=== PATIENT | male | born 1960 | race Caucasian/White ===

== ENCOUNTER 2025-07-02 20:11 | Inpatient (IN) | payer MEDICARE, OTHER ==
[~2025-07-02] VITALS: Ht 182.9 cm; Wt 59.0 kg
[2025-07-02 00:35] VITALS: BP 160/97; TEMP 98.2; O2SAT 96
[2025-07-02] MEDS ORDERED: VANCOMYCIN 1 GM /D5W 250 ML PB IV ONE (20:37)
[2025-07-02] MEDS ORDERED: LEVOFLOXACIN 750 MG /D5W 150ML 150 ML IV ONE (20:38)
[2025-07-02] MEDS ORDERED: ACETAMINOPHEN 650 MG/SUPP.RECT RC ONE (20:38)
[2025-07-02] MEDS: IV NS 0.9% 1,000 ML BAG IV ONE ×2 (20:47→21:35)
[2025-07-02] MEDS: VANCOMYCIN HCL 1 GM in IV D5W 260 ML IV ONE (20:47)
[2025-07-02] MEDS: ACETAMINOPHEN 650 MG/SUPP.RECT RC ONE (21:01)
[2025-07-02 21:02] LABS: PLATELET COUNT (AUTO) 255 K/uL (150-450); RED BLOOD CELL COUNT(AUTO) 3.33 MIL/uL (4.5-6.0); RED CELL DISTRIBUTION WIDTH 14.3 % (11.5-15.0); WHITE BLOOD COUNT (AUTO) 8.6 K/uL (4.3-11.0)
[2025-07-02 21:11] LABS: CALCIUM, SERUM 8.1 mg/dL (8.5-10.1); CREATININE 0.6 mg/dL (0.6-1.3); SODIUM SERUM 135 mmol/L (136-145); UREA NITROGEN, BLOOD 18 mg/dL (7-18)
[2025-07-02 21:20] LABS: ABG BASE EXCESS 2.9 mmol/L (-2.0-3.0); ABG OXYGEN SATURATION 96.6 % (94.0-98.0); ABG PCO2 37.7 mmHg (35.0-48.0); ABG PH 7.467 (7.350-7.450); ABG PO2 91.7 mmHg (83.0-108.0); ABG TOTAL HEMOGLOBIN 10.8 G/dL (13.5-17.5); FLOW, BLOOD GAS 2.00 L/min (0.00-30.00); FRACTIONATED INSPIRED OXYGEN 28.0 %; SITE, ABG RIGHT RADIAL
[2025-07-02 21:20] LABS: LACTIC ACID 2.1 mmol/L (0.4-2.0)
[2025-07-02 21:25] LABS: ASPARTATE AMINOTRANSFERASE 14 U/L (15-37); INR 1.12 (0.91-1.10); TOTAL PROTEIN, SERUM 7.4 g/dL (6.4-8.2)
[2025-07-02] MEDS ORDERED: IPRATROPIUM NEB FS 0.5 MG/2.5 ML AMPUL.NEB ONE (21:36)
[2025-07-02] MEDS ORDERED: ALBUTEROL FS 2.5 MG/3 ML VIAL.NEB ONE (21:36)
[2025-07-02 21:37] VITALS: O2SAT 95
[2025-07-02] MEDS ORDERED: MORPHINE SULFATE INJ 4 MG/ML DISP.SYRIN ONE (21:38)
[2025-07-02] MEDS: ALBUTEROL FS 2.5 MG/3 ML VIAL.NEB NEB ONE (21:40)
[2025-07-02] MEDS: IPRATROPIUM NEB FS 0.5 MG/2.5 ML AMPUL.NEB NEB ONE (21:40)
[2025-07-02 21:41] VITALS: O2SAT 95
[2025-07-02 21:41] LABS: APPEARANCE,URINE CLOUDY (CLEAR); BLOOD, URINE 3+ Ery/uL (NEGATIVE); LEUKOCYTE ESTERASE ,URINE 3+ (NEGATIVE); NITRITE, URINE POSITIVE (NEGATIVE); UGLUCOSE NEGATIVE (NEGATIVE)
[2025-07-02] MEDS: MORPHINE SULFATE INJ 2 MG/ML DISP.SYRIN IV ONE (21:41)
[2025-07-02] MEDS: LEVOFLOXACIN 750 MG /D5W 150ML PIGGYBACK IV ONE (21:50)
[2025-07-02 21:51] LABS: ADD URINE CULTURE YES; SQUAMOUS EPITHELIAL CELL,UR Few /HPF (None Seen); TRIPLE PHOSPHATE CRYSTAL,UR Many /HPF (None Seen)
[2025-07-03] MEDS ORDERED: ONDANSETRON HCL/PF 4 MG/2 ML VIAL IVP PRN
[2025-07-03] MEDS ORDERED: ALBUTEROL FS 2.5 MG/3 ML VIAL.NEB NEB PRN
[2025-07-03] MEDS ORDERED: IPRATROPIUM NEB FS 0.5 MG/2.5 ML AMPUL.NEB NEB PRN
[2025-07-03] MEDS ORDERED: Z GUARD REMEDY 4 OZ OINT TP PRN
[2025-07-03] MEDS ORDERED: DOSING PER PHARMACY-VANCOMYCIN IV XX PRN
[2025-07-03] MEDS: IV NS 0.9% 1,000 ML IV ONE (00:30)
[2025-07-03 00:35] VITALS: BP 148/82; TEMP 98.2; O2SAT 96
[2025-07-03 04:00] VITALS: BP 114/65; TEMP 98.2; O2SAT 95
[2025-07-03 06:29] LABS: PLATELET COUNT (AUTO) 234 K/uL (150-450); RED BLOOD CELL COUNT(AUTO) 3.39 MIL/uL (4.5-6.0); RED CELL DISTRIBUTION WIDTH 14.3 % (11.5-15.0); WHITE BLOOD COUNT (AUTO) 6.6 K/uL (4.3-11.0)
[2025-07-03 06:41] LABS: CALCIUM, SERUM 8.9 mg/dL (8.5-10.1); CREATININE 0.8 mg/dL (0.6-1.3); PHOSPHORUS 3.7 mg/dL (2.5-4.9); SODIUM SERUM 141.0 mmol/L (136-145); UREA NITROGEN, BLOOD 15.0 mg/dL (7-18)
[2025-07-03 08:00] VITALS: BP 137/83; TEMP 98.7; O2SAT 96
[2025-07-03] MEDS: PANTOPRAZOLE 40 MG/PACK PACK GT SCH (09:04)
[2025-07-03] MEDS: VANCOMYCIN 1 GM in IV D5W 250ml IV SCH (09:04)
[2025-07-03] MEDS: ENOXAPARIN SODIUM 40 MG/0.4 ML DISP.SYRIN SQ SCH (09:12)
[2025-07-03] MEDS ORDERED: PANT40SU2 GT (12:59)
[2025-07-03] MEDS ORDERED: MAGN400O6 GT (12:59)
[2025-07-03] MEDS ORDERED: ASPI-1169 GT (12:59)
[2025-07-03] MEDS ORDERED: BISA10SU11 RC (12:59)
[2025-07-03] MEDS ORDERED: IPRA3AMP23 IH (12:59)
[2025-07-03] MEDS ORDERED: ACET-73 GT (12:59)
[2025-07-03] MEDS ORDERED: ACET-637 GT (12:59)
[2025-07-03] MEDS ORDERED: ACET325T53 GT (12:59)
[2025-07-03] MEDS ORDERED: MIDO10TA GT (12:59)
[2025-07-03] MEDS ORDERED: SENN-261 GT (12:59)
[2025-07-03] MEDS ORDERED: MULT-213 GT (12:59)
[2025-07-03] MEDS ORDERED: PALI156D IM (12:59)
[2025-07-03] MEDS ORDERED: ONDA-97 GT (12:59)
[2025-07-03] MEDS ORDERED: DOCU100C36 GT (12:59)
[2025-07-03] MEDS ORDERED: POLY17PO4 GT (12:59)
[2025-07-03] MEDS ORDERED: POLY15DR31 EACHEYE (12:59)
[2025-07-03] MEDS ORDERED: DIVA125C2 GT (12:59)
[2025-07-03] MEDS ORDERED: NA P133E RC (12:59)
[2025-07-03] MEDS ORDERED: DIAZ2TAB3 GT (12:59)
[2025-07-03] MEDS ORDERED: FOLI0.4T6 GT (12:59)
[2025-07-03] MEDS ORDERED: FERR325T24 GT (12:59)
[2025-07-03] MEDS ORDERED: SCOP1PAT11 TD (12:59)
[2025-07-03] MEDS ORDERED: LACT-209 GT (12:59)
[2025-07-03] MEDS ORDERED: AMIN30LI27 GT (12:59)
[2025-07-03] MEDS ORDERED: HONE44PA TP (12:59)
[2025-07-03] MEDS ORDERED: MELA3TAB41 GT (12:59)
[2025-07-03] MEDS ORDERED: ASCO-352 GT (12:59)
[2025-07-03] MEDS ORDERED: QUET100T GT (12:59)
[2025-07-03] MEDS ORDERED: NALO4SPR NS (12:59)
[2025-07-03] MEDS ORDERED: NEOM1OIN15 TP (12:59)
[2025-07-03 16:00] VITALS: BP 124/79; TEMP 97.9; O2SAT 92
[2025-07-03] MEDS: JEVITY 1.2 CAL 1,000 ML BOTTLE GT PRN (19:20)
[2025-07-03 20:00] VITALS: BP 132/77; TEMP 98.6; O2SAT 95
[2025-07-03] MEDS: LEVOFLOXACIN 750 MG /D5W 150ML 750 MG in PREMIX 1 EA IV SCH (20:29)
[2025-07-04] VITALS (9 sets, daily range): BP systolic 113–133; BP diastolic 75–88; TEMP 97.5–98.8; O2SAT 93–98
[2025-07-04 06:20] LABS: PLATELET COUNT (AUTO) 260 K/uL (150-450); RED BLOOD CELL COUNT(AUTO) 3.34 MIL/uL (4.5-6.0); RED CELL DISTRIBUTION WIDTH 14.8 % (11.5-15.0); WHITE BLOOD COUNT (AUTO) 6.5 K/uL (4.3-11.0)
[2025-07-04 06:31] LABS: CALCIUM, SERUM 8.7 mg/dL (8.5-10.1); CREATININE 0.7 mg/dL (0.6-1.3); PHOSPHORUS 2.8 mg/dL (2.5-4.9); SODIUM SERUM 142.0 mmol/L (136-145); UREA NITROGEN, BLOOD 13.0 mg/dL (7-18)
[2025-07-04] MEDS: VANCOMYCIN HCL 1.25 GM in IV D5W 250 ML IV SCH (08:32)
[2025-07-04] MEDS: DAKINS QUARTER STRENGTH (0.125%) 480 ML BOTTLE TOP SCH (11:24)
[2025-07-04] MEDS: NEOMY SULF/BACITRAC ZN/POLY 15 GM TUBE TP SCH (11:24)
[2025-07-04 12:15] LABS: EOSINOPHILS % (MANUAL) 1 % (0-4); LYMPHOCYTES % (MANUAL) 16 % (16-48); MONOCYTES % (MANUAL) 15 % (0-11.0); NEUTROPHILS % (MANUAL) 68 (42-76); PLATELET ESTIMATE ADEQUATE
[2025-07-04] MEDS: IV NS 0.9% 1,000 ML IV ONE (12:30)
[2025-07-04] MEDS: ARGININE/GLUTAMINE/CALCIUM BMB 1 EACH POWD.PACK PEG SCH (12:30)
[2025-07-04] MEDS ORDERED: BISACODYL SUPP (10 MG) 10 MG/SUPP.RECT SUPP.RECT RC PRN (13:00)
[2025-07-04] MEDS ORDERED: DOCUSATE SODIUM 100 MG CAPSULE PO PRN (13:00)
[2025-07-04] MEDS ORDERED: DIAZEPAM 2 MG TABLET GT PRN (13:00)
[2025-07-04] MEDS ORDERED: THERAHONEY GEL 1.5 OZ TUBE TP PRN (13:00)
[2025-07-04] MEDS ORDERED: ALBUTEROL FS 2.5 MG/0.5 ML VIAL.NEB NEB PRN (13:00)
[2025-07-04] MEDS ORDERED: IPRATROPIUM NEB FS 0.5 MG/2.5 ML AMPUL.NEB NEB PRN (13:30)
[2025-07-04] MEDS: ALBUTEROL FS 2.5 MG/0.5 ML VIAL.NEB NEB SCH (13:43)
[2025-07-04] MEDS: DIVALPROEX SODIUM 125 MG CAP.SPRINK GT SCH (13:50)
[2025-07-04] MEDS: PROSOURCE / PROSTAT (PYXIS) 30 ML UDC GT SCH (13:50)
[2025-07-04] MEDS: VITAL AF 1.2 1,000 ML BOTTLE GT PRN (14:19)
[2025-07-04] MEDS: THERAHONEY GEL 1.5 OZ TUBE TP SCH (14:41)
[2025-07-04] MEDS: POLYVINYL ALCOHOL 15 ML BOTTLE EACHEYE SCH (17:52)
[2025-07-04] MEDS: TAMSULOSIN 0.4 MG CAP.SR.24H PO ONE (19:30)
[2025-07-04] MEDS: IPRATROPIUM NEB FS 0.5 MG/2.5 ML AMPUL.NEB NEB SCH (19:36)
[2025-07-04] MEDS: MUPIROCIN OINT 2% 22 GM TUBE NS SCH (20:50)
[2025-07-04] MEDS: QUETIAPINE FUMARATE 100 MG TABLET GT SCH (20:50)
[2025-07-05] VITALS (38 sets, daily range): BP systolic 80–132; BP diastolic 55–116; TEMP 97.2–98.8; O2SAT 97–100
[2025-07-05] MEDS ORDERED: ALBUMIN 25% 100 ML IV ONE (01:15)
[2025-07-05] MEDS: ALBUMIN 25% 12.5 GM/50 ML BOTTLE IV ONE (01:19)
[2025-07-05 08:19] LABS: PLATELET COUNT (AUTO) 226 K/uL (150-450); RED BLOOD CELL COUNT(AUTO) 3.26 MIL/uL (4.5-6.0); RED CELL DISTRIBUTION WIDTH 14.7 % (11.5-15.0); WHITE BLOOD COUNT (AUTO) 6.8 K/uL (4.3-11.0)
[2025-07-05 08:31] LABS: CALCIUM, SERUM 9.0 mg/dL (8.5-10.1); CREATININE 0.7 mg/dL (0.6-1.3); PHOSPHORUS 3.4 mg/dL (2.5-4.9); SODIUM SERUM 145.0 mmol/L (136-145); UREA NITROGEN, BLOOD 11.0 mg/dL (7-18)
[2025-07-05] MEDS: SENNOSIDES 8.6 MG TABLET GT SCH (08:50)
[2025-07-05] MEDS: MULTIVIT W/MINERALS 1 TAB TABLET GT SCH (08:50)
[2025-07-05] MEDS: ASCORBIC ACID 500 MG TABLET GT SCH (08:50)
[2025-07-05] MEDS: FERROUS SULFATE (325 MG) 325 MG/TAB TABLET GT SCH (08:51)
[2025-07-05] MEDS: FOLIC ACID 1 MG TABLET GT SCH (08:51)
[2025-07-05] MEDS: ASPIRIN 81 MG TAB.CHEW GT SCH (08:51)
[2025-07-05] MEDS: ZOSYN IVPB 3.375 G in IV D5W 50ml IV ONE (12:37)
[2025-07-05] MEDS ORDERED: PIPERACILLIN /TAZOBACTAM 3.375 G in IV D5W 100 ML IV SCH (13:00)
[2025-07-05] MEDS ORDERED: LEVOFLOXACIN (250MG) 250 MG TABLET GT SCH (21:00)
[2025-07-05] MEDS: PIPERACILLIN /TAZOBACTAM 3.375 G in IV D5W 100 ML IV SCH (21:55)
[2025-07-06] VITALS (47 sets, daily range): BP systolic 83–187; BP diastolic 59–133; TEMP 97.9–99.1; O2SAT 94–100
[2025-07-06 04:56] LABS: CALCIUM, SERUM 8.5 mg/dL (8.5-10.1); CREATININE 0.6 mg/dL (0.6-1.3); SODIUM SERUM 143.0 mmol/L (136-145); UREA NITROGEN, BLOOD 13.0 mg/dL (7-18)
[2025-07-06] MEDS: ACETAMINOPHEN 650 MG/20.3 ML UDC GT PRN (21:41)
[2025-07-07] VITALS (15 sets, daily range): BP systolic 108–209; BP diastolic 70–179; TEMP 97.5–98.8; O2SAT 92–100
[2025-07-07 07:32] LABS: CALCIUM, SERUM 8.6 mg/dL (8.5-10.1); CREATININE 0.6 mg/dL (0.6-1.3); SODIUM SERUM 145.0 mmol/L (136-145); UREA NITROGEN, BLOOD 24.0 mg/dL (7-18)
[2025-07-07] MEDS: VANCOMYCIN 1 GM in IV D5W 250ml IV SCH (08:58)
[2025-07-07] MEDS ORDERED: DOSING PER PHARMACY-TOBRAMYCIN IV XX PRN (21:00)
[2025-07-07] MEDS: D5W IV ONE (21:25)
[2025-07-07] MEDS: TOBRAMYCIN IV ONE (21:25)
[2025-07-08] VITALS (13 sets, daily range): BP systolic 98–152; BP diastolic 62–97; TEMP 97.3–99.1; O2SAT 94–100
[2025-07-08 08:31] LABS: CALCIUM, SERUM 8.7 mg/dL (8.5-10.1); CREATININE 0.7 mg/dL (0.6-1.3); SODIUM SERUM 140.0 mmol/L (136-145); UREA NITROGEN, BLOOD 13.0 mg/dL (7-18)
[2025-07-08] MEDS: TOBRAMYCIN IV SCH (21:32)
[2025-07-08] MEDS: D5W IV SCH (21:32)
[2025-07-09] VITALS (13 sets, daily range): BP systolic 107–133; BP diastolic 64–95; TEMP 97.5–99.4; O2SAT 95–100
[2025-07-09 06:51] LABS: CALCIUM, SERUM 8.8 mg/dL (8.5-10.1); CREATININE 0.5 mg/dL (0.6-1.3); SODIUM SERUM 143.0 mmol/L (136-145); UREA NITROGEN, BLOOD 9.0 mg/dL (7-18)
[2025-07-10] VITALS (16 sets, daily range): BP systolic 96–184; BP diastolic 34–87; TEMP 97.9–98.8; O2SAT 94–100
[2025-07-10 07:37] LABS: PLATELET COUNT (AUTO) 284 K/uL (150-450); RED BLOOD CELL COUNT(AUTO) 3.49 MIL/uL (4.5-6.0); RED CELL DISTRIBUTION WIDTH 14.9 % (11.5-15.0); WHITE BLOOD COUNT (AUTO) 8.5 K/uL (4.3-11.0)
[2025-07-10 10:37] LABS: CALCIUM, SERUM 8.3 mg/dL (8.5-10.1); CREATININE 1.1 mg/dL (0.6-1.3); SODIUM SERUM 138.0 mmol/L (136-145); UREA NITROGEN, BLOOD 14.0 mg/dL (7-18)
[2025-07-10] MEDS: ACETYLCYSTEINE 10% SOLN 400 MG/4 ML VIAL NEB SCH (16:42)
[2025-07-10] MEDS: SCOPOLAMINE PATCH 1 MG/72HR TD SCH (17:36)
[2025-07-11] VITALS (17 sets, daily range): BP systolic 106–127; BP diastolic 60–84; TEMP 98.2–98.6; O2SAT 94–100
[2025-07-11] MEDS ORDERED: HYDROMORPHONE 1 MG/1 ML DISP.SYRIN IV PRN (09:00)
[2025-07-11 09:13] LABS: ABG BASE EXCESS 4.6 mmol/L (-2.0-3.0); ABG OXYGEN SATURATION 90.5 % (94.0-98.0); ABG PCO2 35.9 mmHg (35.0-48.0); ABG PH 7.505 (7.350-7.450); ABG PO2 59.0 mmHg (83.0-108.0); ABG TOTAL HEMOGLOBIN 11.7 G/dL (13.5-17.5); FLOW, BLOOD GAS 3.00 L/min (0.00-30.00); FRACTIONATED INSPIRED OXYGEN 32.0 %; SITE, ABG RIGHT RADIAL
[2025-07-11 13:11] LABS: CALCIUM, SERUM 8.9 mg/dL (8.5-10.1); CREATININE 0.9 mg/dL (0.6-1.3); SODIUM SERUM 143.0 mmol/L (136-145); UREA NITROGEN, BLOOD 23.0 mg/dL (7-18)
[2025-07-11] MEDS: POTASSIUM CHLORIDE 20 MEQ POWDER PACKET GT ONE (18:09)
[2025-07-11] MEDS ORDERED: LORAZEPAM INJ 2 MG/ML VIAL IVP PRN (20:30)
[2025-07-11] MEDS ORDERED: MORPHINE SULFATE PF DRIP 250 MG in IV D5W 240 ML IV PRN (20:30)
[2025-07-11] MEDS ORDERED: MORPHINE SULFATE INJ 4 MG/ML DISP.SYRIN IV ONE (21:00)
== END 2025-07-11 20:52 | disposition hospice, inpatient (51) | DRG 698 ==
LOC: ER 20:13 → TELE 23:58 → ICU 07-05 03:16 → TELE 07-06 18:15 → MED 07-11 10:55
PROVIDERS: ADMIT Nurse Practitioner Family; ATTEND Nurse Practitioner Acute Care
DX: T83.511A Infection and inflammatory reaction due to indwelling urethral catheter, initial encounter (principal); A41.89 Other specified sepsis; G93.41 Metabolic encephalopathy; L89.154 Pressure ulcer of sacral region, stage 4; J15.69 Pneumonia due to other Gram-negative bacteria; R65.21 Severe sepsis with septic shock; J96.21 Acute and chronic respiratory failure with hypoxia; J44.0 Chronic obstructive pulmonary disease with (acute) lower respiratory infection; F03.93 Unspecified dementia, unspecified severity, with mood disturbance; F03.918 Unspecified dementia, unspecified severity, with other behavioral disturbance; E44.0 Moderate protein-calorie malnutrition; D68.59 Other primary thrombophilia; E87.1 Hypo-osmolality and hyponatremia; R64 Cachexia; J98.11 Atelectasis; N39.0 Urinary tract infection, site not specified; B96.4 Proteus (mirabilis) (morganii) as the cause of diseases classified elsewhere; Y84.6 Urinary catheterization as the cause of abnormal reaction of the patient, or of later complication, without mention of misadventure at the time of the procedure; Y92.129 Unspecified place in nursing home as the place of occurrence of the external cause; Z66 Do not resuscitate; Z51.5 Encounter for palliative care; E88.09 Other disorders of plasma-protein metabolism, not elsewhere classified; Z74.09 Other reduced mobility; F31.9 Bipolar disorder, unspecified; K44.9 Diaphragmatic hernia without obstruction or gangrene; R13.10 Dysphagia, unspecified; Z93.1 Gastrostomy status; Z88.1 Allergy status to other antibiotic agents; Y95 Nosocomial condition; Z86.14 Personal history of Methicillin resistant Staphylococcus aureus infection; E86.0 Dehydration; F10.11 Alcohol abuse, in remission; I25.10 Atherosclerotic heart disease of native coronary artery without angina pectoris; B96.89 Other specified bacterial agents as the cause of diseases classified elsewhere; D64.9 Anemia, unspecified; N36.8 Other specified disorders of urethra; F29 Unspecified psychosis not due to a substance or known physiological condition; Z20.822 Contact with and (suspected) exposure to COVID-19; M62.462 Contracture of muscle, left lower leg
CPT/HCPCS: 31720; 36415; 36600; 71045-TC; 71250-TC; 80048-TC; 80076-TC; 80202-TC; 81001; 82803-TC; 83605-TC; 83735-TC; 84100-TC; 84484-TC; 85025-TC; 85027-TC; 85730-TC; 87040-TC; 87081-TC; 87086-TC; 87186-TC; 93307-TC; 94760-TC; 94762-TC; 94799-TC; A4216; A4223; A6254; A6403; G0378; J1200; J1650; J1956; J2270; J2274; J2543; J2919; J3260; J3373; J7030; J7050; J7060; P9047

== ENCOUNTER 2025-07-11 20:39 | Inpatient (IN) | payer OTHER ==
[~2025-07-11] VITALS: Ht 182.9 cm; Wt 51.3 kg
[~2025-07-11 20:39] MED LIST: ACET-637 GT; ACET-73 GT; ACET325T53 GT; AMIN30LI27 GT; ASCO-352 GT; ASPI-1169 GT; BISA10SU11 RC; DIAZ2TAB3 GT; DIVA125C2 GT; DOCU100C36 GT; FERR325T24 GT; FOLI0.4T6 GT; HONE44PA TP; IPRA3AMP23 IH; LACT-209 GT; MAGN400O6 GT; MELA3TAB41 GT; MIDO10TA GT; MULT-213 GT; NA P133E RC; NALO4SPR NS; NEOM1OIN15 TP; ONDA-97 GT; PALI156D IM; PANT40SU2 GT; POLY15DR31 EACHEYE; POLY17PO4 GT; QUET100T GT; SCOP1PAT11 TD; SENN-261 GT
[2025-07-11] MEDS: MORPHINE SULFATE INJ 4 MG/ML DISP.SYRIN IV ONE (21:02)
[2025-07-11] MEDS: KEY,NONCONTROL,TO KEEP IN PYXI 1 EA MC ONE (21:12)
[2025-07-11] MEDS: MORPHINE SULFATE PF DRIP 250 MG in IV D5W 240 ML IV PRN (21:35)
[2025-07-11] MEDS ORDERED: SCOPOLAMINE PATCH 1 MG/72HR TD ONE (23:11)
[2025-07-11] MEDS: SCOPOLAMINE PATCH 1 MG/72HR TD SCH (23:18)
[2025-07-12 07:30] VITALS: BP 114/21; TEMP 97.9; O2SAT 95
[2025-07-12 16:05] VITALS: BP 117/68; TEMP 98.6; O2SAT 94
[2025-07-12] MEDS: KEY,NONCONTROL,TO KEEP IN PYXI 1 EA MC ONE (21:34)
[2025-07-13] MEDS: LORAZEPAM INJ 2 MG/ML VIAL IVP PRN (02:45)
[2025-07-13 04:23] VITALS: BP 98/67; TEMP 98.2; O2SAT 98
[2025-07-13 08:00] VITALS: BP 86/60; TEMP 100.6; O2SAT 97
[2025-07-13] MEDS ORDERED: ACETAMINOPHEN 650 MG/SUPP.RECT RC PRN (18:00)
[2025-07-13 20:00] VITALS: BP 102/60; TEMP 98.6; O2SAT 93
[2025-07-13] MEDS: KEY,NONCONTROL,TO KEEP IN PYXI 1 EA MC ONE (21:35)
[2025-07-14 13:10] VITALS: BP 109/66; TEMP 98.2; O2SAT 95
[2025-07-14] MEDS: LORAZEPAM INJ 2 MG/ML VIAL IV PRN (19:14)
[2025-07-14 20:00] VITALS: BP 86/61; TEMP 97.6; O2SAT 98
[2025-07-14] MEDS: KEY,NONCONTROL,TO KEEP IN PYXI 1 EA MC ONE (22:17)
[2025-07-15 08:00] VITALS: BP 91/69; TEMP 98.1; O2SAT 95
[2025-07-15 16:00] VITALS: BP 91/69; TEMP 102.9; O2SAT 94
[2025-07-15 20:00] VITALS: BP 83/59; TEMP 98.2; O2SAT 93
[2025-07-15] MEDS ORDERED: KEY,NONCONTROL,TO KEEP IN PYXI 1 EA MC ONE (22:04)
[2025-07-15] MEDS: MORPHINE SULFATE PF DRIP 250 MG in IV D5W 240 ML IV PRN (22:06)
[2025-07-16 08:00] VITALS: BP 75/58; TEMP 102.7; O2SAT 94
[2025-07-16 16:00] VITALS: BP 69/53; TEMP 102; O2SAT 97
[2025-07-16 20:00] VITALS: BP 66/47; TEMP 98.1; O2SAT 94
[2025-07-17 08:00] VITALS: BP 43/32; TEMP 97.7; O2SAT 92
== END 2025-07-17 08:20 | DRG 871 ==
LOC: HOSPICE 20:39
PROVIDERS: ADMIT Registered Nurse Psychiatric/Mental Health; ATTEND Student in an Organized Health Care Education/Training Program
DX: A41.89 Other specified sepsis (principal); G93.41 Metabolic encephalopathy; J15.69 Pneumonia due to other Gram-negative bacteria; L89.154 Pressure ulcer of sacral region, stage 4; R65.21 Severe sepsis with septic shock; J96.21 Acute and chronic respiratory failure with hypoxia; E44.0 Moderate protein-calorie malnutrition; F03.93 Unspecified dementia, unspecified severity, with mood disturbance; F03.918 Unspecified dementia, unspecified severity, with other behavioral disturbance; N39.0 Urinary tract infection, site not specified; D68.59 Other primary thrombophilia; Z66 Do not resuscitate; Z51.5 Encounter for palliative care; F29 Unspecified psychosis not due to a substance or known physiological condition; F31.9 Bipolar disorder, unspecified; F10.10 Alcohol abuse, uncomplicated; Y90.9 Presence of alcohol in blood, level not specified; R13.10 Dysphagia, unspecified; Z93.1 Gastrostomy status; I25.10 Atherosclerotic heart disease of native coronary artery without angina pectoris; N36.8 Other specified disorders of urethra; Y95 Nosocomial condition; Z91.030 Bee allergy status; Z88.1 Allergy status to other antibiotic agents; E88.09 Other disorders of plasma-protein metabolism, not elsewhere classified; Z79.82 Long term (current) use of aspirin; Z79.899 Other long term (current) drug therapy; Z79.51 Long term (current) use of inhaled steroids; B96.4 Proteus (mirabilis) (morganii) as the cause of diseases classified elsewhere; Z74.09 Other reduced mobility; M62.462 Contracture of muscle, left lower leg
CPT/HCPCS: G0378; J2060; J2270; J2274; J7060